=== PATIENT | male | born 1945 | race Hispanic/Latino ===

== ENCOUNTER 2021-11-17 12:55 | Inpatient (IN) | payer MEDICARE, OTHER, SELFPAY ==
[~2021-11-17 12:55] MED LIST: Iopamidol-370 76% 500 ML 1 ML ONE
[2021-11-17 13:14] LABS: #Eosinphils 0.1 thou/uL (0.0-0.7); #Monocytes 0.2 thou/uL (0.11-0.59); #Neutrophils 6.6 thou/uL (1.40-6.50); %Basophils 0.3 % (0.0-1.0); %Eosinophils 0.9 % (0.0-10.0); %Lymphocytes 13.2 % (21.0-51.0); %Monocytes 2.2 % (0.0-10.0); %Neutrophils 83.4 % (42.0-75.0); Hemoglobin 13.4 g/dL (14.0-18.0); Mean Corpuscular Hemoglobin 29.2 pg (27.0-31.0); Mean Corpuscular Volume 94.2 fL (78.0-98.0); Mean Platelet Volume 8.2 fL (7.4-10.4); Platelet Count 150 thou/uL (130-400); RBC Distribution Width 17.7 % (11.5-14.5); Red Blood Cell (RBC) Count 4.61 mill/uL (4.70-6.10); White Blood Cell (WBC) Count 7.9 thou/uL (4.8-10.8)
[2021-11-17 13:38] LABS: ALT (SGPT) 13 U/L (8-55); AST (SGOT) 17 U/L (5-34); Albumin 3.3 g/dL (3.4-4.8); Alkaline Phosphatase 111 U/L (40-110); Anion Gap 11 mmol/L (10-20); BUN (Urea Nitrogen) 21 mg/dL (8.4-25.7); Bilirubin, Total 1.4 mg/dL (0.2-1.2); Calc. Creatinine Clearance 0 mL/min (70-130); Calcium 9.2 mg/dL (7.8-10.44); Carbon Dioxide 26 mmol/L (23-31); Chloride 106 mmol/L (98-107); Globulin 3.6 g/dL (2.4-3.5); Glucose 130 mg/dL (83-110); Lipase 40 U/L (8-78); Potassium 4.3 mmol/L (3.5-5.1); Protein, Total 6.9 g/dL (5.8-8.1); Sodium 139 mmol/L (136-145)
[2021-11-17 13:59] LABS: CKMB 1.7 ng/mL (0-6.6)
[2021-11-17 17:55] LABS: Troponin I 0.027 ng/mL (< 0.028)
[2021-11-17] MEDS ORDERED: Loperamide HCl 2 MG CAP PO PRN (18:12)
[2021-11-17] MEDS ORDERED: Acetaminophen 325 MG TAB PO PRN (18:12)
[2021-11-17] MEDS ORDERED: Ondansetron PF 4 MG/2 ML Vial IVP PRN (18:18)
[2021-11-17] MEDS ORDERED: Morphine 2 MG/ML VIAL SLOW IVP PRN (18:18)
[2021-11-17] MEDS ORDERED: Sodium Chloride 0.9% 1,000 ML IV SCH (18:45)
[2021-11-17] MEDS: Morphine 4 MG/ML VIAL SLOW IVP PRN ×2 (19:10→21:38)
[2021-11-17 19:15] VITALS: BMI 25.3
[2021-11-17] MEDS ORDERED: Electrolyte Replacement Protocol 1 EACH FS SCH (19:15)
[2021-11-17 20:53] LABS: Magnesium 1.6 mg/dL (1.6-2.6)
[2021-11-17 20:58] LABS: Troponin I 0.031 ng/mL (< 0.028)
[2021-11-17] MEDS: metroNIDAZOLE 500 MG in Premix Bag 1 BAG IVPB SCH (21:37)
[2021-11-17] MEDS: Famotidine 20 MG TAB PO SCH (21:38)
[2021-11-18] MEDS ORDERED: Magnesium 2 GM/50 ML(in water) 2 GM in Premix Bag 1 BAG IVPB SCH (01:30)
[2021-11-18 04:19] LABS: Bacteria/HPF None Seen HPF (None Seen); Bilirubin Negative (Negative); Blood, Urine Negative (Negative); Clarity Clear (Clear); Glucose, Urine (Dipstick) Normal (Negative); Ketone, Urine Negative (Negative); Leukocyte 25 Leu/uL (Negative); Nitrite Negative (Negative); Protein, Urine (Dipstick) Negative (Neg-Trace); RBC/HPF 0-3 HPF (0-3); Specific Gravity, Urine 1.016 (1.002-1.036); Squamous Epithelial None Seen HPF (0-3); Urobilinogen Normal mg/dL (Less than 2); WBC/HPF 0-3 HPF (0-3)
[2021-11-18 04:25] LABS: Urine Culture Reflex Yes Yes
[2021-11-18 04:31] LABS: Iron 19 ug/dL (65-175); Iron Binding Capacity, Total 226 mcg/dL (261-462); Phosphorus 4.7 mg/dL (2.3-4.7)
[2021-11-18] MEDS: metroNIDAZOLE 500 MG in Premix Bag 1 BAG IVPB SCH ×3 (05:44→21:13)
[2021-11-18 08:42] LABS: Hemoglobin 13.5 g/dL (14.0-18.0); Mean Corpuscular HGB CONC 31.1 g/dL (32.0-36.0); Mean Corpuscular Hemoglobin 29.3 pg (27.0-31.0); Mean Corpuscular Volume 94.1 fL (78.0-98.0); RBC Distribution Width 18.3 % (11.5-14.5)
[2021-11-18 08:45] LABS: Prothrombin Time 13.3 sec (12.0-14.7)
[2021-11-18 08:46] LABS: PTT 38.6 sec (22.9-36.1)
[2021-11-18 08:50] LABS: Iron Binding Capacity, Total 213 mcg/dL (261-462)
[2021-11-18 08:51] LABS: ALT (SGPT) 12 U/L (8-55); AST (SGOT) 16 U/L (5-34); Alkaline Phosphatase 92 U/L (40-110); Anion Gap 13 mmol/L (10-20); BUN (Urea Nitrogen) 26 mg/dL (8.4-25.7); Bilirubin, Total 1.9 mg/dL (0.2-1.2); Calc. Creatinine Clearance 42 mL/min (70-130); Calcium 8.2 mg/dL (7.8-10.44); Carbon Dioxide 21 mmol/L (23-31); Chloride 107 mmol/L (98-107); Globulin 3.3 g/dL (2.4-3.5); Glucose 94 mg/dL (83-110); Iron 17 ug/dL (65-175); Potassium 4.6 mmol/L (3.5-5.1); Protein, Total 6.3 g/dL (5.8-8.1); Sodium 136 mmol/L (136-145)
[2021-11-18] MEDS ORDERED: Lisinopril 10 MG TAB PO SCH (09:00)
[2021-11-18] MEDS ORDERED: Furosemide 40 MG TAB PO SCH (09:00)
[2021-11-18 09:23] LABS: #Lymphocytes 0.7 thou/uL (1.20-3.40); #Monocytes 0.6 thou/uL (0.11-0.59); %Basophils 0.1 % (0.0-1.0); %Eosinophils 0.1 % (0.0-10.0); %Lymphocytes 7.2 % (21.0-51.0); %Neutrophils 86.6 % (42.0-75.0); Mean Platelet Volume 8.6 fL (7.4-10.4); Platelet Count 118 thou/uL (130-400); Platelet Morphology Comment Appears Decreased; White Blood Cell (WBC) Count 9.2 thou/uL (4.8-10.8)
[2021-11-18] MEDS: Carvedilol 6.25 MG TAB PO SCH ×2 (09:27→21:13)
[2021-11-18] MEDS: Saccharomyces boulardii 250 MG CAP PO SCH (09:27)
[2021-11-18] MEDS ORDERED: Aspirin 81 mg Enteric Coated Tablet PO SCH (16:15)
[2021-11-18] MEDS ORDERED: Clopidogrel Bisulfate 300 MG TAB PO SCH (16:15)
[2021-11-18] MEDS: Dextrose 5 %-0.45 % NaCl 1,000 ML IV SCH (17:00)
[2021-11-18] MEDS: Atorvastatin Calcium 20 MG TAB PO SCH (21:13)
[2021-11-18] MEDS: Famotidine 20 MG TAB PO SCH (21:13)
[2021-11-19 04:09] LABS: #Lymphocytes 0.8 thou/uL (1.20-3.40); #Monocytes 0.6 thou/uL (0.11-0.59); #Neutrophils 6.6 thou/uL (1.40-6.50); %Eosinophils 0.3 % (0.0-10.0); %Lymphocytes 9.4 % (21.0-51.0); %Monocytes 8.1 % (0.0-10.0); %Neutrophils 82.3 % (42.0-75.0); Hemoglobin 11.7 g/dL (14.0-18.0); Mean Corpuscular HGB CONC 31.2 g/dL (32.0-36.0); Mean Corpuscular Hemoglobin 29.5 pg (27.0-31.0); Mean Corpuscular Volume 94.5 fL (78.0-98.0); Mean Platelet Volume 8.6 fL (7.4-10.4); Platelet Count 105 thou/uL (130-400); RBC Distribution Width 18.2 % (11.5-14.5); Red Blood Cell (RBC) Count 3.96 mill/uL (4.70-6.10)
[2021-11-19 04:30] LABS: Anion Gap 10 mmol/L (10-20); BUN (Urea Nitrogen) 24 mg/dL (8.4-25.7); Calc. Creatinine Clearance 55 mL/min (70-130); Calcium 7.7 mg/dL (7.8-10.44); Carbon Dioxide 22 mmol/L (23-31); Chloride 103 mmol/L (98-107); Glucose 88 mg/dL (83-110); Potassium 3.7 mmol/L (3.5-5.1); Sodium 131 mmol/L (136-145)
[2021-11-19] MEDS: Dextrose 5 %-0.45 % NaCl 1,000 ML IV SCH ×2 (04:31→15:07)
[2021-11-19] MEDS: metroNIDAZOLE 500 MG in Premix Bag 1 BAG IVPB SCH ×3 (05:45→21:24)
[2021-11-19] MEDS ORDERED: Clopidogrel Bisulfate 75 MG TAB PO SCH (09:00)
[2021-11-19] MEDS ORDERED: Aspirin 81 mg Enteric Coated Tablet PO SCH (09:00)
[2021-11-19] MEDS: Carvedilol 6.25 MG TAB PO SCH ×2 (09:59→20:32)
[2021-11-19] MEDS: Saccharomyces boulardii 250 MG CAP PO SCH (09:59)
[2021-11-19 12:58] LABS: #Lymphocytes 0.7 thou/uL (1.20-3.40); #Monocytes 0.6 thou/uL (0.11-0.59); #Neutrophils 6.8 thou/uL (1.40-6.50); %Basophils 0.2 % (0.0-1.0); %Eosinophils 0.6 % (0.0-10.0); %Lymphocytes 8.9 % (21.0-51.0); %Monocytes 7.3 % (0.0-10.0); Hemoglobin 11.5 g/dL (14.0-18.0); Mean Corpuscular HGB CONC 31.8 g/dL (32.0-36.0); Mean Corpuscular Hemoglobin 29.6 pg (27.0-31.0); Mean Corpuscular Volume 93.1 fL (78.0-98.0); Mean Platelet Volume 8.7 fL (7.4-10.4); Platelet Count 99 thou/uL (130-400); RBC Distribution Width 17.7 % (11.5-14.5); Red Blood Cell (RBC) Count 3.88 mill/uL (4.70-6.10); White Blood Cell (WBC) Count 8.2 thou/uL (4.8-10.8)
[2021-11-19] MEDS: Atorvastatin Calcium 20 MG TAB PO SCH (20:32)
[2021-11-19] MEDS: Famotidine 20 MG TAB PO SCH (20:33)
[2021-11-20] MEDS: Dextrose 5 %-0.45 % NaCl 1,000 ML IV SCH (04:25)
[2021-11-20 04:45] LABS: #Eosinphils 0.1 thou/uL (0.0-0.7); #Lymphocytes 0.6 thou/uL (1.20-3.40); #Monocytes 0.6 thou/uL (0.11-0.59); #Neutrophils 7.4 thou/uL (1.40-6.50); %Eosinophils 0.6 % (0.0-10.0); %Monocytes 6.4 % (0.0-10.0); Hemoglobin 12.3 g/dL (14.0-18.0); Mean Corpuscular HGB CONC 32.5 g/dL (32.0-36.0); Mean Corpuscular Hemoglobin 30.2 pg (27.0-31.0); Mean Corpuscular Volume 93.1 fL (78.0-98.0); Mean Platelet Volume 8.7 fL (7.4-10.4); Platelet Count 100 thou/uL (130-400); RBC Distribution Width 17.5 % (11.5-14.5); Red Blood Cell (RBC) Count 4.08 mill/uL (4.70-6.10); White Blood Cell (WBC) Count 8.6 thou/uL (4.8-10.8)
[2021-11-20 05:26] LABS: Anion Gap 10 mmol/L (10-20); BUN (Urea Nitrogen) 15 mg/dL (8.4-25.7); Calc. Creatinine Clearance 73 mL/min (70-130); Calcium 8.2 mg/dL (7.8-10.44); Carbon Dioxide 21 mmol/L (23-31); Chloride 104 mmol/L (98-107); Glucose 106 mg/dL (83-110); Potassium 3.7 mmol/L (3.5-5.1); Sodium 131 mmol/L (136-145)
[2021-11-20] MEDS: metroNIDAZOLE 500 MG in Premix Bag 1 BAG IVPB SCH ×3 (05:47→22:39)
[2021-11-20] MEDS ORDERED: Calcium Carbonate 500 MG ChewTAB PO PRN (08:01)
[2021-11-20] MEDS ORDERED: GUAIFENESIN SF SOLN 200 MG/10 ML UDCUP PO PRN (08:01)
[2021-11-20] MEDS ORDERED: Moisturizing Cream (Eucerin) 113 GM JAR TOP PRN (08:01)
[2021-11-20] MEDS ORDERED: Senokot S 8.6-50 MG TAB PO PRN (08:01)
[2021-11-20] MEDS ORDERED: hydrALAZINE 20 MG/ML VIAL SLOW IVP PRN (08:01)
[2021-11-20] MEDS ORDERED: Cepastat Lozenges 1 LOZ PO PRN (08:01)
[2021-11-20] MEDS ORDERED: Artificial Tear Sol 15 ML BOT EA EYE PRN (08:01)
[2021-11-20] MEDS: Saccharomyces boulardii 250 MG CAP PO SCH (08:46)
[2021-11-20] MEDS ORDERED: Lisinopril 5 MG TAB PO SCH (09:00)
[2021-11-20] MEDS: Carvedilol 6.25 MG TAB PO SCH (17:32)
[2021-11-20] MEDS: Famotidine 20 MG TAB PO SCH (21:06)
[2021-11-20] MEDS: Atorvastatin Calcium 20 MG TAB PO SCH (21:06)
[2021-11-21 04:40] LABS: #Eosinphils 0.1 thou/uL (0.0-0.7); #Lymphocytes 0.8 thou/uL (1.20-3.40); #Monocytes 0.6 thou/uL (0.11-0.59); #Neutrophils 3.8 thou/uL (1.40-6.50); %Basophils 0.3 % (0.0-1.0); %Eosinophils 1.9 % (0.0-10.0); %Lymphocytes 15.2 % (21.0-51.0); %Monocytes 10.5 % (0.0-10.0); %Neutrophils 72.2 % (42.0-75.0); Hemoglobin 11.8 g/dL (14.0-18.0); Mean Corpuscular HGB CONC 32.6 g/dL (32.0-36.0); Mean Corpuscular Hemoglobin 30.2 pg (27.0-31.0); Mean Corpuscular Volume 92.7 fL (78.0-98.0); Platelet Count 110 thou/uL (130-400); RBC Distribution Width 17.2 % (11.5-14.5); White Blood Cell (WBC) Count 5.2 thou/uL (4.8-10.8)
[2021-11-21 04:54] LABS: Anion Gap 9 mmol/L (10-20); BUN (Urea Nitrogen) 10 mg/dL (8.4-25.7); Calc. Creatinine Clearance 90 mL/min (70-130); Calcium 8.2 mg/dL (7.8-10.44); Carbon Dioxide 23 mmol/L (23-31); Chloride 107 mmol/L (98-107); Glucose 84 mg/dL (83-110); Magnesium 1.6 mg/dL (1.6-2.6); Phosphorus 2.9 mg/dL (2.3-4.7); Potassium 3.6 mmol/L (3.5-5.1); Sodium 135 mmol/L (136-145)
[2021-11-21] MEDS ORDERED: Magnesium 2 GM/50 ML(in water) 2 GM in Premix Bag 1 BAG IVPB SCH (05:00)
[2021-11-21] MEDS: metroNIDAZOLE 500 MG in Premix Bag 1 BAG IVPB SCH ×3 (05:16→22:09)
[2021-11-21] MEDS: Carvedilol 6.25 MG TAB PO SCH ×3 (08:53→17:32)
[2021-11-21] MEDS: Saccharomyces boulardii 250 MG CAP PO SCH (08:53)
[2021-11-21] MEDS ORDERED: Lisinopril 10 MG TAB PO SCH (09:00)
[2021-11-21] MEDS ORDERED: Clopidogrel Bisulfate 75 MG TAB PO SCH (09:00)
[2021-11-21] MEDS ORDERED: Aspirin 81 mg Enteric Coated Tablet PO SCH (09:00)
[2021-11-21] MEDS: Atorvastatin Calcium 20 MG TAB PO SCH (20:49)
[2021-11-22] MEDS: metroNIDAZOLE 500 MG in Premix Bag 1 BAG IVPB SCH (05:35)
[2021-11-22 08:25] VITALS: BP 174/89; TEMP 97.3
== END 2021-11-22 10:35 | disposition home or self-care (01) | DRG 871 ==
LOC: ERS 12:55 → 2NO 16:54
PROVIDERS: ADMIT Internal Medicine; ATTEND Internal Medicine
PROC: 0D9P70Z Drainage of Rectum with Drainage Device, Via Natural or Artificial Opening (ICD-10-PCS; principal; 2021-11-17)
PROC: 3E03329 Introduction of Other Anti-infective into Peripheral Vein, Percutaneous Approach (ICD-10-PCS; 2021-11-17)
DX: A41.4 Sepsis due to anaerobes (principal); K55.039 Acute (reversible) ischemia of large intestine, extent unspecified; N17.9 Acute kidney failure, unspecified; I50.22 Chronic systolic (congestive) heart failure; I13.0 Hypertensive heart and chronic kidney disease with heart failure and stage 1 through stage 4 chronic kidney disease, or unspecified chronic kidney disease; G93.49 Other encephalopathy; I24.8 Other forms of acute ischemic heart disease; Z20.822 Contact with and (suspected) exposure to COVID-19; I25.10 Atherosclerotic heart disease of native coronary artery without angina pectoris; K44.9 Diaphragmatic hernia without obstruction or gangrene; R77.8 Other specified abnormalities of plasma proteins; E78.5 Hyperlipidemia, unspecified; E86.0 Dehydration; N18.9 Chronic kidney disease, unspecified; D63.1 Anemia in chronic kidney disease; I95.89 Other hypotension; Z78.1 Physical restraint status; Z95.5 Presence of coronary angioplasty implant and graft; Z85.038 Personal history of other malignant neoplasm of large intestine; Z90.49 Acquired absence of other specified parts of digestive tract; Z92.21 Personal history of antineoplastic chemotherapy; Z98.890 Other specified postprocedural states; Z80.0 Family history of malignant neoplasm of digestive organs; Z86.16 Personal history of COVID-19
CPT/HCPCS: 36415; 71045; 74177; 80048; 80053; 81001; 82274; 82553; 82728; 83540; 83550; 83605; 83630; 83690; 83735; 84100; 84484; 85025; 85610; 85730; 87040; 87045; 87046; 87076; 87086; 87324; 87328; 87329; 87427; 87449; 93005; 93306; 96360; J0744; J2270; J3475; J7042; J7050; Q9967; U0003; U0005